=== PATIENT | male | born 1985 | race African-American/Black ===

== ENCOUNTER 2025-08-26 21:26 | Emergency (ER) | payer OTHER ==
[~2025-08-26] VITALS: Ht 185.4 cm; Wt 79.4 kg
[2025-08-26 22:34] VITALS: BP 115/86; TEMP 98.8; O2SAT 96
[2025-08-26] MEDS ORDERED: GUAIFENESIN/D-METHORPHAN HB 5 ML UDC ONE (22:51)
[2025-08-26] MEDS ORDERED: IBUPROFEN 400 MG TABLET ONE (22:52)
[2025-08-26] MEDS ORDERED: ONDANSETRON 4 MG TAB.RAPDIS ONE (22:52)
[2025-08-26] MEDS ORDERED: DICYCLOMINE HCL 10 MG CAPSULE PO ONE (22:52)
[2025-08-26] MEDS: IBUPROFEN 400 MG TABLET PO ONE (22:59)
[2025-08-26] MEDS: ONDANSETRON 4 MG TAB.RAPDIS SL ONE (22:59)
[2025-08-26] MEDS: DICYCLOMINE HCL 10 MG CAPSULE PO ONE (22:59)
[2025-08-26] MEDS: GUAIFENESIN/D-METHORPHAN HB 5 ML UDC PO ONE (22:59)
[2025-08-27] MEDS ORDERED: GUAI1TBM19 PO (00:11)
[2025-08-27] MEDS ORDERED: IBUP-1957 PO (00:11)
[2025-08-27] MEDS ORDERED: ONDA4TAB11 PO (00:11)
[2025-08-27] MEDS ORDERED: BENZ-13 PO (00:11)
== END 2025-08-27 00:21 | disposition home or self-care (01) ==
LOC: ER 21:30
DX: B34.9 Viral infection, unspecified (principal); Z79.1 Long term (current) use of non-steroidal anti-inflammatories (NSAID); Z20.822 Contact with and (suspected) exposure to COVID-19
CPT/HCPCS: 99284; 71045; 87426; 87804 ×2; Q0162

== ENCOUNTER 2025-08-27 06:23 | Emergency (ER) | payer OTHER ==
[~2025-08-27 06:23] MED LIST: BENZ-13 PO; GUAI1TBM19 PO; IBUP-1957 PO; ONDA4TAB11 PO
== END 2025-08-27 07:05 | disposition home or self-care (01) ==
LOC: ER 06:25
DX: Z53.21 Procedure and treatment not carried out due to patient leaving prior to being seen by health care provider (principal)